=== PATIENT | male | born 1940 | race African-American/Black ===

== ENCOUNTER 2018-09-23 19:45 | Emergency (ER) | payer MEDICARE, OTHER ==
[~2018-09-23] VITALS: Ht 177.8 cm; Wt 106.6 kg
[2018-09-23 22:00] LABS: Albumin 3.3 g/dL (3.4-5.0); Anion Gap 10 (5-15); Blood Urea Nitrogen 50 mg/dL (7-18); Calcium 9.2 mg/dL (8.5-10.1); Carbon Dioxide 20 mmol/L (21-32); Chloride 108 mmol/L (98-107); Glucose 115 mg/dL (74-106); Magnesium 2.1 mg/dL (1.6-2.6); Potassium 4.4 mmol/L (3.5-5.1); Sodium 138 mmol/L (136-145)
[2018-09-23 22:02] LABS: Alanine Aminotransferase 14 U/L (16-61); Aspartate Aminotransferase 7 U/L (15-37); BUN/Creatinine Ratio 13.2; GFR African American 20 mL/min; GFR Non-African American 17 mL/min
[2018-09-23 22:06] LABS: Alkaline Phosphatase 83 U/L (45-117); Bilirubin, Total 0.5 mg/dL (0.2-1.0); Total Protein 7.3 g/dL (6.4-8.2)
[2018-09-23 22:09] LABS: Basophils # (auto) 0 uL; Basophils % (auto) 0.7 % (0.0-2.0); Eosinophils # (auto) 0.2 uL; Eosinophils % (auto) 3.2 % (0.0-7.0); Hematocrit 37.9 % (41.0-53.0); Hemoglobin 12.3 g/dL (13.5-17.5); Lymphocytes # (auto) 1.2 uL; Lymphocytes % (auto) 23.6 % (10.0-50.0); Mean Corpuscular Hemoglobin 27.7 pg (28.0-32.0); Mean Corpuscular Hgb Conc. 32.5 g/dL (32.0-36.0); Mean Corpuscular Volume 85.2 fL (80.0-100.0); Monocytes # (auto) 0.4 uL; Monocytes % (auto) 8.7 % (0.0-12.0); Neutrophils # (auto) 3.2 uL; Neutrophils % (auto) 63.8 % (37.0-80.0); Platelet Count (auto) 183 10^3/uL (140-450); Red Blood Cells 4.45 10^6/uL (4.5-5.90); Red Cell Distribution Width 14.8 % (11.8-14.3); White Blood Cell 4.9 10^3/uL (4.4-10.8)
[2018-09-23 22:37] LABS: INR 1.03 (0.9-1.15); Partial Thromboplastin Time 29.4 sec (23.78-33.04)
[2018-09-24 02:16] VITALS: BP 128/75
== END 2018-09-24 02:57 | disposition home or self-care (01) ==
LOC: ER 19:45
DX: I95.9 Hypotension, unspecified (principal); E11.22 Type 2 diabetes mellitus with diabetic chronic kidney disease; N18.9 Chronic kidney disease, unspecified; I50.9 Heart failure, unspecified; E78.5 Hyperlipidemia, unspecified
CPT/HCPCS: 36415; 71045; 80053; 83735; 83880; 84484; 85025; 85379; 85610; 85730; 93005; 94761

== ENCOUNTER 2018-10-14 03:51 | Emergency (ER) | payer SELFPAY ==
[~2018-10-14] VITALS: Ht 177.8 cm; Wt 98.0 kg
[2018-10-14] MEDS ORDERED: cloNIDine HCL 0.1 MG TAB ONE (04:21)
[2018-10-14] MEDS ORDERED: cloNIDine HCL 0.1 MG TAB PO ONE (04:30)
[2018-10-14 07:53] LABS: Anion Gap 7 (5-15); Carbon Dioxide 25 mmol/L (21-32); Chloride 113 mmol/L (98-107); Sodium 145 mmol/L (136-145)
[2018-10-14 07:54] LABS: Albumin 3.2 g/dL (3.4-5.0); Blood Urea Nitrogen 43 mg/dL (7-18); Calcium 8.8 mg/dL (8.5-10.1); Glucose 53 mg/dL (74-106); Magnesium 2.5 mg/dL (1.6-2.6)
[2018-10-14 07:56] LABS: Basophils # (auto) 0 uL; Basophils % (auto) 0.8 % (0.0-2.0); Eosinophils # (auto) 0.1 uL; Hematocrit 32.5 % (41.0-53.0); Hemoglobin 10.8 g/dL (13.5-17.5); Lymphocytes # (auto) 1.3 uL; Lymphocytes % (auto) 29.2 % (10.0-50.0); Mean Corpuscular Hemoglobin 28.4 pg (28.0-32.0); Mean Corpuscular Hgb Conc. 33.2 g/dL (32.0-36.0); Mean Corpuscular Volume 85.4 fL (80.0-100.0); Monocytes # (auto) 0.5 uL; Monocytes % (auto) 10.3 % (0.0-12.0); Neutrophils # (auto) 2.5 uL; Neutrophils % (auto) 56.7 % (37.0-80.0); Platelet Count (auto) 171 10^3/uL (140-450); Red Cell Distribution Width 15.5 % (11.8-14.3); White Blood Cell 4.4 10^3/uL (4.4-10.8)
[2018-10-14 08:00] LABS: Alanine Aminotransferase 11 U/L (16-61); Alkaline Phosphatase 76 U/L (45-117); Aspartate Aminotransferase 7 U/L (15-37); Bilirubin, Total 0.4 mg/dL (0.2-1.0); GFR African American 21 mL/min; GFR Non-African American 18 mL/min; Total Protein 6.9 g/dL (6.4-8.2)
[2018-10-14] MEDS ORDERED: FUROSEMIDE 20 MG/2 ML VIAL IV ONE (09:00)
[2018-10-14] MEDS ORDERED: DEXTROSE (50%) 50ML SYRG IV ONE (09:30)
[2018-10-14 12:14] LABS: Urine Bacteria NONE SEEN /hpf (None Seen); Urine Blood Negative /uL (Negative); Urine Specific Gravity 1.009 (1.001-1.035); Urine WBC <1 /hpf (0 - 3)
[2018-10-14 13:15] VITALS: BP 162/99
== END 2018-10-14 12:56 | disposition home or self-care (01) ==
LOC: ER 03:54
DX: I11.0 Hypertensive heart disease with heart failure (principal); I50.9 Heart failure, unspecified; E11.9 Type 2 diabetes mellitus without complications; E78.5 Hyperlipidemia, unspecified
CPT/HCPCS: 36415; 71046; 80053; 81001; 82962; 83735; 83880; 84484; 85025; 93005; 96374; 96375; 99284; J1940; J7042

== ENCOUNTER → 2018-11-17 | Outpatient (CLI) | payer MEDICARE, OTHER ==
[~2018-11-17] MED LIST: APIX2.5T PO; ATOR20TA50 PO; CAR3125T PO; CHOL20007 PO; FURO40TA4 PO; GLIP10TA9 PO; HYDR-4296 PO; ISO60SRT PO; PANT40T PO; POTA1TAB61 PO; TAMS0.4C36 PO
[2018-11-17 10:58] LABS: INR 1.08 (0.9-1.15); Partial Thromboplastin Time 31.5 sec (23.64-32.05)
--- NOTE | 2018-11-17 12:00 | NUR ---
DISCHARGE INSTRUCTIONS. REVIEWED DISCHARGE INSTRUCTIONS FOR BIOPSY AFTERCARE WITH THE PATIENT AND THE PATIENT'S DAUGHTER. ADVISED TO GIVE THESE PRINTED INSTRUCTIONS TO THE PATIENT CARE STAFF AT [facility] WHERE PATIENT CURRENTLY RESIDES.
== END | disposition home or self-care (01) ==
LOC: EDBD 09:57 → US 09:57
PROVIDERS: ATTEND Internal Medicine
DX: E04.1 Nontoxic single thyroid nodule (principal); E11.22 Type 2 diabetes mellitus with diabetic chronic kidney disease; I13.2 Hypertensive heart and chronic kidney disease with heart failure and with stage 5 chronic kidney disease, or end stage renal disease; I50.23 Acute on chronic systolic (congestive) heart failure; N18.6 End stage renal disease; E11.40 Type 2 diabetes mellitus with diabetic neuropathy, unspecified; D64.9 Anemia, unspecified; E78.5 Hyperlipidemia, unspecified; J44.9 Chronic obstructive pulmonary disease, unspecified; I21.A1 Myocardial infarction type 2; I25.10 Atherosclerotic heart disease of native coronary artery without angina pectoris; K21.9 Gastro-esophageal reflux disease without esophagitis; I48.91 Unspecified atrial fibrillation; M81.0 Age-related osteoporosis without current pathological fracture; Z95.1 Presence of aortocoronary bypass graft; Z79.4 Long term (current) use of insulin; Z79.82 Long term (current) use of aspirin; Z79.899 Other long term (current) drug therapy; Z99.2 Dependence on renal dialysis
CPT/HCPCS: 10005; 10022; 36415; 76536; 76942; 85610; 85730; 88173

== ENCOUNTER 2019-02-13 00:37 | Inpatient (IN) | payer MEDICARE, OTHER ==
[~2019-02-13] VITALS: Ht 170.2 cm; Wt 94.0 kg
[2019-02-13 02:46] LABS: Basophils # (auto) 0.1 uL; Basophils % (auto) 1.3 % (0.0-2.0); Eosinophils # (auto) 0.2 uL; Eosinophils % (auto) 3.7 % (0.0-7.0); Hematocrit 38.5 % (41.0-53.0); Hemoglobin 12.7 g/dL (13.5-17.5); Lymphocytes # (auto) 1.5 uL; Lymphocytes % (auto) 27.9 % (10.0-50.0); Mean Corpuscular Hemoglobin 29.6 pg (28.0-32.0); Mean Corpuscular Hgb Conc. 32.9 g/dL (32.0-36.0); Mean Corpuscular Volume 89.7 fL (80.0-100.0); Monocytes # (auto) 0.5 uL; Monocytes % (auto) 8.7 % (0.0-12.0); Neutrophils # (auto) 3.2 uL; Neutrophils % (auto) 58.4 % (37.0-80.0); Nucleated Red Blood Cells % 0.1 %; Platelet Count (auto) 136 10^3/uL (140-450); Red Blood Cells 4.29 10^6/uL (4.5-5.90); Red Cell Distribution Width 16.8 % (11.8-14.3); White Blood Cell 5.4 10^3/uL (4.4-10.8)
[2019-02-13 02:58] LABS: Urine Bacteria FEW /hpf (None Seen); Urine Blood Negative /uL (Negative); Urine Hyaline Cast FEW /lpf (0 - 2); Urine Specific Gravity 1.021 (1.001-1.035); Urine WBC 2 /hpf (0 - 3)
[2019-02-13 03:07] LABS: Albumin 3.4 g/dL (3.4-5.0); BUN/Creatinine Ratio 7.4; Magnesium 2.2 mg/dL (1.6-2.6); Potassium 3.9 mmol/L (3.5-5.1)
[2019-02-13 03:12] LABS: Bilirubin, Total 0.6 mg/dL (0.2-1.0); Total Protein 7.5 g/dL (6.4-8.2)
[2019-02-13] MEDS ORDERED: ACETAMINOPHEN 325 MG TAB PO PRN (06:15)
[2019-02-13] MEDS ORDERED: DOCUSATE SOD 100 MG CAP PO PRN (06:15)
[2019-02-13] MEDS ORDERED: ONDANSETRON HCL 4 MG/2 ML VIAL IV PRN (06:15)
[2019-02-13] MEDS ORDERED: DEXTROSE (50%) 50ML SYRG IV PRN (06:15)
[2019-02-13] MEDS ORDERED: TEMAZEPAM 15 MG CAP PO PRN (06:15)
[2019-02-13] MEDS ORDERED: NITROGLYCERIN 0.4 MG SL TAB SL PRN (06:15)
[2019-02-13] MEDS ORDERED: MORPHINE SULF INJ 2 MG/ML SYRINGE 1ML IV PRN (06:15)
--- NOTE | 2019-02-13 07:50 | NUR ---
Telemetry admit from ER FRANCOIS DEL CASTILLO admitted to Telemetry unit. Patient oriented to SONU WATKINSRN primary RN, unit, room, bed, and unit policies regarding patient care and visiting hours. Patient now on continuous telemetry monitoring, tele box #13 and telemetry reading on arrival to unit is NSR. Patient weighed by bedscale and encouraged to call if they need something with call light within reach. Bed in low/locked position, bed rails up x2. All questions and concerns addressed, patient verbalized understanding. Will continue to monitor Q1h and PRN
[2019-02-13 09:00] VITALS: BP 168/95
[2019-02-13] MEDS: ASPirin 81 mg TAB PO SCH (09:07)
[2019-02-13] MEDS: CARVEDILOL 3.125 MG TAB PO SCH ×2 (09:08→21:19)
[2019-02-13] MEDS: APIXABAN 2.5 MG TAB PO SCH ×2 (09:08→21:20)
[2019-02-13] MEDS: ISOSORBIDE MONONITRATE ER 60 MG TAB PO SCH (09:08)
[2019-02-13] MEDS: ACCU-CHEK COMFORT CURVE STRIP VI SCH ×3 (11:32→23:28)
[2019-02-13] MEDS: InsuLIN REG 1unit/0.01ml Soln (100units/ml) SC SCH ×3 (11:34→23:28)
[2019-02-13 13:00] VITALS: BP 120/74
[2019-02-13] MEDS: hydrALAZINE HCL 25 MG TAB PO SCH ×2 (13:34→21:19)
--- NOTE | 2019-02-13 15:40 | NUR ---
ROUND DR BACA AT BEDSIDE DISCUSSING POC WITH PATIENT. ALL QUESTIONS/CONCERNS ANSWERED. NEW ORDERS RECEIVED/CARRIED OUT. WILL CONTINUE TO MONITOR
--- NOTE | 2019-02-13 15:45 | NUR ---
MELITA POLO PAGE OUT TO DR MCDONALD RE: PATIENT ADMISSION. AWAITING RETURN CALL
[2019-02-13] MEDS ORDERED: cefTRIAXone 1GM/50ML D5W 50 ML IV ONE (16:00)
--- NOTE | 2019-02-13 16:30 | NUR ---
MD CALL DR MCDONALD RETURNED PHONE CALL RE: PATIENT ADMISSION.
[2019-02-13 17:00] VITALS: BP 140/81
[2019-02-13] MEDS: TAMSULOSIN HYDROCHLORIDE 0.4 MG CAP PO SCH (17:53)
[2019-02-13] MEDS: FUROSEMIDE 40 MG/4 ML VIAL IV SCH (17:53)
[2019-02-13] MEDS: ATORVASTATIN 20 MG TAB PO SCH (21:20)
[2019-02-13 21:48] VITALS: BP 129/72
[2019-02-14 05:22] VITALS: BP 139/79
[2019-02-14] MEDS: FUROSEMIDE 40 MG/4 ML VIAL IV SCH ×2 (05:36→17:36)
[2019-02-14 05:37] LABS: Basophils # (auto) 0 uL; Basophils % (auto) 0.8 % (0.0-2.0); Eosinophils # (auto) 0.2 uL; Eosinophils % (auto) 6.5 % (0.0-7.0); Hematocrit 34.1 % (41.0-53.0); Hemoglobin 11.2 g/dL (13.5-17.5); Lymphocytes # (auto) 1.3 uL; Lymphocytes % (auto) 38.4 % (10.0-50.0); Mean Corpuscular Hemoglobin 29.4 pg (28.0-32.0); Mean Corpuscular Hgb Conc. 32.9 g/dL (32.0-36.0); Mean Corpuscular Volume 89.3 fL (80.0-100.0); Monocytes # (auto) 0.4 uL; Monocytes % (auto) 12.6 % (0.0-12.0); Neutrophils # (auto) 1.5 uL; Neutrophils % (auto) 41.7 % (37.0-80.0); Nucleated Red Blood Cells % 0.1 %; Platelet Count (auto) 122 10^3/uL (140-450); Red Blood Cells 3.82 10^6/uL (4.5-5.90); Red Cell Distribution Width 16.3 % (11.8-14.3); White Blood Cell 3.5 10^3/uL (4.4-10.8)
[2019-02-14] MEDS: hydrALAZINE HCL 25 MG TAB PO SCH ×3 (05:37→21:26)
[2019-02-14] MEDS: PANTOPRAZOLE 40 MG TAB PO SCH (05:37)
[2019-02-14] MEDS: InsuLIN REG 1unit/0.01ml Soln (100units/ml) SC SCH ×3 (05:38→17:36)
[2019-02-14] MEDS: ACCU-CHEK COMFORT CURVE STRIP VI SCH ×3 (05:38→17:36)
[2019-02-14 05:57] LABS: Calcium 8.6 mg/dL (8.5-10.1); Potassium 3.9 mmol/L (3.5-5.1)
[2019-02-14 06:01] LABS: BUN/Creatinine Ratio 10.1
--- NOTE | 2019-02-14 07:20 | NUR ---
Opening Shift Note Assumed care of patient, awake, alert and oriented. No S/S of distress/SOB or pain. Bed in low/locked position, bed rails up x2. Instructed on POC and to call for assist PRN with call light within reach. Will continue to monitor for changes Q1hr and PRN.
[2019-02-14] MEDS: ASPirin 81 mg TAB PO SCH (09:19)
[2019-02-14] MEDS: APIXABAN 2.5 MG TAB PO SCH ×2 (09:19→21:28)
[2019-02-14] MEDS: CARVEDILOL 3.125 MG TAB PO SCH ×2 (09:20→21:27)
[2019-02-14] MEDS: ISOSORBIDE MONONITRATE ER 60 MG TAB PO SCH (09:21)
--- NOTE | 2019-02-14 09:27 | NUR ---
UA URINE SAMPLE SENT
[2019-02-14 09:29] VITALS: BP 154/85
--- NOTE | 2019-02-14 13:30 | NUR ---
MD ROUNDS DR BACA AT BEDSIDE DISCUSSING POC WITH PATIENT. ALL QUESTIONS/CONCERNS ANSWERED. NEW ORDERS RECEIVED/CARRIED OUT WILL CONTINUE TO MONITOR
[2019-02-14 14:42] VITALS: BP 161/83
[2019-02-14] MEDS: cefTRIAXone 1GM/50ML D5W 50 ML IV SCH (15:26)
[2019-02-14 17:24] VITALS: BP 157/92
[2019-02-14] MEDS: TAMSULOSIN HYDROCHLORIDE 0.4 MG CAP PO SCH (17:36)
[2019-02-14 21:00] VITALS: BP 125/77
[2019-02-14] MEDS: ATORVASTATIN 20 MG TAB PO SCH (21:28)
[2019-02-15] MEDS: ACCU-CHEK COMFORT CURVE STRIP VI SCH ×5 (00:26→23:52)
[2019-02-15] MEDS: InsuLIN REG 1unit/0.01ml Soln (100units/ml) SC SCH ×5 (00:26→23:53)
[2019-02-15 04:30] VITALS: BP 122/68
[2019-02-15] MEDS: hydrALAZINE HCL 25 MG TAB PO SCH ×3 (06:05→22:58)
[2019-02-15] MEDS: FUROSEMIDE 40 MG/4 ML VIAL IV SCH ×2 (06:05→18:19)
[2019-02-15] MEDS: PANTOPRAZOLE 40 MG TAB PO SCH (06:06)
[2019-02-15 06:19] LABS: Basophils # (auto) 0 uL; Eosinophils # (auto) 0.2 uL; Eosinophils % (auto) 6.1 % (0.0-7.0); Hematocrit 32.4 % (41.0-53.0); Hemoglobin 10.9 g/dL (13.5-17.5); Lymphocytes # (auto) 1.5 uL; Lymphocytes % (auto) 37.2 % (10.0-50.0); Mean Corpuscular Hemoglobin 29.5 pg (28.0-32.0); Mean Corpuscular Hgb Conc. 33.6 g/dL (32.0-36.0); Mean Corpuscular Volume 87.9 fL (80.0-100.0); Monocytes # (auto) 0.4 uL; Neutrophils # (auto) 1.8 uL; Neutrophils % (auto) 44.7 % (37.0-80.0); Platelet Count (auto) 128 10^3/uL (140-450); Red Blood Cells 3.69 10^6/uL (4.5-5.90); Red Cell Distribution Width 16.1 % (11.8-14.3)
[2019-02-15 06:39] LABS: BUN/Creatinine Ratio 11.1; Calcium 8.5 mg/dL (8.5-10.1); Potassium 3.9 mmol/L (3.5-5.1)
--- NOTE | 2019-02-15 08:00 | NUR ---
Opening Shift Note Assumed care of patient, awake, alert and oriented X4. No S/S of distress/SOB or pain. Tele# 13, sinus rhythm @ 69 bpm. IV to right antecubital, 20 gauge, patent and saline locked. Right upper chest wall Zack catheter with dressing clean, dry and intact. Instructed on POC and to call for assist PRN, verbalized understanding. Bed locked, in lowest position, call light within reach, will continue to monitor for changes Q1hr and PRN.
--- NOTE | 2019-02-15 08:45 | NUR ---
CARDIOLOGY Dr Paez at bedside for Cardiology consult, no new orders received at this time. Plan of care discussed with patient, verbalized understanding.
[2019-02-15 09:00] VITALS: BP 164/90
--- NOTE | 2019-02-15 10:18 | NUR ---
ROUNDS Dr Flores at bedside for rounds, new orders received and followed through. Patient updated on plan of care, verbalized understanding.
[2019-02-15] MEDS: APIXABAN 2.5 MG TAB PO SCH ×2 (10:36→21:48)
[2019-02-15] MEDS: ASPirin 81 mg TAB PO SCH (10:37)
[2019-02-15] MEDS: CARVEDILOL 3.125 MG TAB PO SCH ×2 (10:38→21:50)
[2019-02-15] MEDS: ISOSORBIDE MONONITRATE ER 60 MG TAB PO SCH (10:39)
--- NOTE | 2019-02-15 10:57 | NUR ---
HEMODIALYSIS Call placed to [facility], spoke to Mahnaz, fernando patient was seen by Dr Flores yesterday, 02/14/2019, but no hemodialysis orders placed. Per patient, his Dialysis days are , and Thu. Per Mahnaz, she will contact Dr Rosario to get orders. Awaiting return call. Patient updated on plan of care, verbalized understanding. Addendum: 02/15/19 at 1100 by Jolynn Arellano RN ERROR Patient was seen by Dr Rosario yesterday, 02/14/2019, not Sandra.
--- NOTE | 2019-02-15 11:17 | NUR ---
Nutrition assessment Notes please see attached link for complete assessment Est. Needs ABW (80 kg): 2160-2400kcal (27-30 kcal/kgIBW), 96-112 gms pro (1.2-1.4 gms/kgABW r/t HD). Will continue to monitor pertinent labs and reassess nutrient need prn Addendum: 02/15/19 at [address] Amended: Links added.
--- NOTE | 2019-02-15 14:29 | NUR ---
[facility] 2nd call placed requesting Hemodialysis orders, awaiting return call.
--- NOTE | 2019-02-15 14:36 | NUR ---
Return call received from Dr Rosario, notified of reason for call, new orders received and followed through. Patient updated on plan of care, verbalized understanding.
[2019-02-15] MEDS ORDERED: cloNIDine HCL 0.1 MG TAB PO PRN (14:45)
[2019-02-15] MEDS: VALSARTAN 80 MG TAB PO SCH ×2 (15:01→21:49)
[2019-02-15] MEDS: NIFEdipine ER 30 MG TAB PO SCH ×2 (15:02→21:48)
[2019-02-15] MEDS: cefTRIAXone 1GM/50ML D5W 50 ML IV SCH (16:08)
--- NOTE | 2019-02-15 16:13 | NUR ---
assessment re: consult for dc planning Patient is a 78 year old male who is alert and oriented. Prior to admission patient lived home with his Hemal and functioned with assistance. Per patient he has a fww and a cane for home use. Patients PCP is Dr Arnav Browning. Patient has a caregiver Whitney. Patient was released from [facility] to home after 3 months. Patient was feeling ill and came to ER. Patient does not want to return to [facility]. Patient wants to return home with his and caregiver. Patient informed me his will make decisions for him. Patient was on service with [facility]. Patient will need a resumption order on discharge. I informed patient he has a right to speak to a professor of social work regarding all care. I informed patient he has a right to participate in any and all discharge planning. Patient does not have a POA and advanced directive. I have offered patient information on POA and advanced directives. I informed the patient the advantages and benefits of having an Advanced Directive. Patient verbalized understanding and agreed to discharge plan. Addendum: 02/15/19 at 1617 by Sharon HURT Amended: Links added.
--- NOTE | 2019-02-15 16:25 | NUR ---
NEPHROLOGY Dr Rosario at bedside for Nephrology follow up, no new orders at this time. Plan of care discussed with patient, verbalized understanding.
[2019-02-15 16:59] VITALS: BP 129/63
[2019-02-15] MEDS: TAMSULOSIN HYDROCHLORIDE 0.4 MG CAP PO SCH (18:19)
--- NOTE | 2019-02-15 19:25 | NUR ---
Care endorsed to Rusty RN, night nurse
[2019-02-15] MEDS: ATORVASTATIN 20 MG TAB PO SCH (21:48)
[2019-02-15 22:00] VITALS: BP 137/75
[2019-02-16] VITALS (9 sets, daily range): BP systolic 80–138; BP diastolic 50–73
--- NOTE | 2019-02-16 04:41 | NUR ---
notified [facility] hospital[facility] blood pressure is 80/50 hr is 74. Montano provided new order of albumin 250 ml iv 1x dose now. read back and will carry out.
[2019-02-16] MEDS ORDERED: ALBUMIN 5% 250 ML IV ONE (04:45)
[2019-02-16] MEDS: FUROSEMIDE 40 MG/4 ML VIAL IV SCH (06:00)
[2019-02-16] MEDS: hydrALAZINE HCL 25 MG TAB PO SCH (06:00)
[2019-02-16] MEDS: InsuLIN REG 1unit/0.01ml Soln (100units/ml) SC SCH ×3 (06:00→17:35)
[2019-02-16] MEDS: ACCU-CHEK COMFORT CURVE STRIP VI SCH ×3 (06:09→17:34)
[2019-02-16] MEDS: PANTOPRAZOLE 40 MG TAB PO SCH (06:09)
--- NOTE | 2019-02-16 06:12 | NUR ---
bp eval: currently is 100/56. albumin still infusing.
--- NOTE | 2019-02-16 08:00 | NUR ---
Opening Shift Note Assumed care of patient, awake, alert and oriented X4. No S/S of distress/SOB or pain. Tele# 13, sinus rhythm @66 bpm. IV to right hand, 22 gauge, patent and saline locked. Right upper chest wall Zack catheter with dressing clean, dry and intact. Instructed on POC and to call for assist PRN, verbalized understanding. Bed locked, in lowest position, call light within reach, will continue to monitor for changes Q1hr and PRN.
[2019-02-16] MEDS: ISOSORBIDE MONONITRATE ER 60 MG TAB PO SCH (10:00)
[2019-02-16] MEDS: CARVEDILOL 3.125 MG TAB PO SCH ×2 (10:00→21:42)
--- NOTE | 2019-02-16 11:48 | NUR ---
Discharge planning per consult, patient has orders to dc with home health. On encounter with patient he advised that whatever his (Hemal Hester) was okay with. I spoke to the as she was just outside the room (patient was receiving dialysis) and acknowledged myself, inquired about the choice of home health and she was okay with [facility] as that is what was on the consult, however he is medicare and still needed a choice letter. signed choice letter. Referral was faxed to [place], placed a follow up call, spoke with Emani and they will accept patient on discharge and start of care will be within 24-48 hours. Addendum: 02/16/19 at 1158 by HELENA PRUETT SS Amended: Links added. Addendum: 02/16/19 at 1158 by HELENARAVI PRUETT SS Nurse Neil was advised of the dc plan.
[2019-02-16] MEDS: ASPirin 81 mg TAB PO SCH (12:03)
[2019-02-16] MEDS: APIXABAN 2.5 MG TAB PO SCH ×2 (12:03→21:42)
[2019-02-16] MEDS: cefTRIAXone 1GM/50ML D5W 50 ML IV SCH (15:51)
--- NOTE | 2019-02-16 19:21 | NUR ---
Care endorsed to SATISH Duvall, night nurse.
--- NOTE | 2019-02-16 19:31 | NUR ---
OPENING NOTES RECEIVED REPORT FROM DAY SHIFT NURSE, JORDAN. PT IS AWAKE, ALERT AND ORIENTATED X 4 WITH NO S/S OF DISTRESS NOR PAIN. NO S/S OF SOB. PT HAS [place] CATH ON RIGHT UPPER CHEST. BED IS IN LOWEST POSITION AND SIDE RAILS ARE UP X 2. BED BRAKES ARE LOCKED AND CALL LIGHT IS WITH IN REACH. HOB IS 30 DEGREES. WILL CONTINUE TO MONITOR Q 1 HR.
[2019-02-16] MEDS ORDERED: EPOETIN ALFA 10,000 UNIT/1 ML VIAL IV ONE (21:00)
[2019-02-16] MEDS: ATORVASTATIN 20 MG TAB PO SCH (21:42)
[2019-02-16] MEDS: VALSARTAN 80 MG TAB PO SCH (21:42)
[2019-02-16] MEDS: NIFEdipine ER 30 MG TAB PO SCH (21:43)
[2019-02-17] MEDS: ACCU-CHEK COMFORT CURVE STRIP VI SCH ×3 (00:12→12:41)
[2019-02-17 05:00] VITALS: BP 131/69
[2019-02-17] MEDS: PANTOPRAZOLE 40 MG TAB PO SCH (05:32)
[2019-02-17] MEDS: InsuLIN REG 1unit/0.01ml Soln (100units/ml) SC SCH ×3 (05:39→12:41)
--- NOTE | 2019-02-17 07:38 | NUR ---
closing notes endorsed care to day shift nurseElias.
[2019-02-17 09:00] VITALS: BP 136/72
[2019-02-17] MEDS: APIXABAN 2.5 MG TAB PO SCH (10:10)
[2019-02-17] MEDS: ASPirin 81 mg TAB PO SCH (10:10)
[2019-02-17] MEDS: ISOSORBIDE MONONITRATE ER 60 MG TAB PO SCH (10:11)
[2019-02-17] MEDS: CARVEDILOL 3.125 MG TAB PO SCH (10:12)
[2019-02-17 13:00] VITALS: BP 118/73
[2019-02-17 13:48] VITALS: BP 105/67
--- NOTE | 2019-02-17 14:00 | NUR ---
PER MD SALES; DR. MCDONALD WILL CALL IN PRESCRIPTION FOR DIOVAN, PROCARDIA.
--- NOTE | 2019-02-17 16:06 | NUR ---
DISCHARGE INSTRUCTIONS PROVIDED TO PT AND DAUGHTER. BOTH VERBALIZED UNDERSTANDING FOR PRESCRIPTION ORDERS AND FOLLOW UP APPOINTMENT WITH PRIMARY CARE PROVIDER. PER MD SALES ; DR MCDONALD WILL CALL IN FOR PROCARDIA AND HENRYVAN. PT INSTRUCTED ON STOPPING ALL OTHER BP MEDICATIONS ONCE THIS TWO MEDICATIONS ARE RECEIVED. IV CATHETER DC'D CATHETER INTACT, NO PHLEBITIS, TELE BOX REMOVED AND RETURNED TO MONITORING DEPT. PT SAFELY ESCORTED OUT OF UNIT VIA WHEELCHAIR.
== END 2019-02-17 16:10 | disposition home health service (06) | DRG 291 ==
LOC: ER 00:37 → TELE 00:38 → TELE-EAST 07:54
PROVIDERS: ADMIT Nurse Practitioner; ATTEND Internal Medicine
PROC: 5A1D70Z Performance of Urinary Filtration, Intermittent, Less than 6 Hours Per Day (ICD-10-PCS; principal; 2019-02-16)
DX: I13.2 Hypertensive heart and chronic kidney disease with heart failure and with stage 5 chronic kidney disease, or end stage renal disease (principal); N18.6 End stage renal disease; I50.43 Acute on chronic combined systolic (congestive) and diastolic (congestive) heart failure; N39.0 Urinary tract infection, site not specified; I48.92 Unspecified atrial flutter; E11.22 Type 2 diabetes mellitus with diabetic chronic kidney disease; I25.10 Atherosclerotic heart disease of native coronary artery without angina pectoris; I48.91 Unspecified atrial fibrillation; D63.8 Anemia in other chronic diseases classified elsewhere; E11.21 Type 2 diabetes mellitus with diabetic nephropathy; E66.9 Obesity, unspecified; E78.5 Hyperlipidemia, unspecified; J44.9 Chronic obstructive pulmonary disease, unspecified; G47.30 Sleep apnea, unspecified; G47.00 Insomnia, unspecified; K59.00 Constipation, unspecified; I08.0 Rheumatic disorders of both mitral and aortic valves; R54 Age-related physical debility; I27.20 Pulmonary hypertension, unspecified; I25.5 Ischemic cardiomyopathy; I95.9 Hypotension, unspecified; Z99.2 Dependence on renal dialysis; Z95.1 Presence of aortocoronary bypass graft; Z82.49 Family history of ischemic heart disease and other diseases of the circulatory system; Z79.01 Long term (current) use of anticoagulants; Z79.899 Other long term (current) drug therapy; Z68.32 Body mass index [BMI] 32.0-32.9, adult
CPT/HCPCS: 36415; 71045; 76775; 80048; 80053; 81001; 82962; 83036; 83735; 83880; 84443; 84484; 85025; 87086; 90935; 93306; 96365; 96366; 96375; 97116; 97163; 97530; G0378; J0696; J0885; J1815

== ENCOUNTER 2019-02-28 07:31 | Emergency (ER) | payer MEDICARE, OTHER ==
[~2019-02-28] VITALS: Ht 170.2 cm; Wt 90.3 kg
[2019-02-28 08:06] LABS: Basophils # (auto) 0.1 uL; Basophils % (auto) 2.3 % (0.0-2.0); Eosinophils # (auto) 0.2 uL; Eosinophils % (auto) 5.6 % (0.0-7.0); Hematocrit 37.7 % (41.0-53.0); Hemoglobin 12.2 g/dL (13.5-17.5); Lymphocytes # (auto) 1.5 uL; Lymphocytes % (auto) 35.4 % (10.0-50.0); Mean Corpuscular Hemoglobin 28.9 pg (28.0-32.0); Mean Corpuscular Hgb Conc. 32.4 g/dL (32.0-36.0); Mean Corpuscular Volume 89.2 fL (80.0-100.0); Monocytes # (auto) 0.4 uL; Monocytes % (auto) 10.8 % (0.0-12.0); Neutrophils # (auto) 1.9 uL; Neutrophils % (auto) 45.9 % (37.0-80.0); Platelet Count (auto) 149 10^3/uL (140-450); Red Blood Cells 4.23 10^6/uL (4.5-5.90); Red Cell Distribution Width 16.7 % (11.8-14.3); White Blood Cell 4.1 10^3/uL (4.4-10.8)
[2019-02-28 08:20] LABS: Albumin 3.4 g/dL (3.4-5.0); BUN/Creatinine Ratio 7.8; Calcium 9.2 mg/dL (8.5-10.1); Potassium 4.8 mmol/L (3.5-5.1)
[2019-02-28 08:23] LABS: Bilirubin, Total 0.4 mg/dL (0.2-1.0); Total Protein 7.2 g/dL (6.4-8.2)
[2019-02-28] MEDS ORDERED: cloNIDine HCL 0.1 MG TAB PO ONE (09:00)
[2019-02-28 11:54] VITALS: BP 118/76
== END 2019-02-28 12:16 | disposition home or self-care (01) ==
LOC: ER 07:31
DX: E11.22 Type 2 diabetes mellitus with diabetic chronic kidney disease (principal); I13.2 Hypertensive heart and chronic kidney disease with heart failure and with stage 5 chronic kidney disease, or end stage renal disease; I50.9 Heart failure, unspecified; N18.6 End stage renal disease; F41.9 Anxiety disorder, unspecified; J44.9 Chronic obstructive pulmonary disease, unspecified; E78.5 Hyperlipidemia, unspecified; Z99.2 Dependence on renal dialysis; Z79.4 Long term (current) use of insulin; Z95.1 Presence of aortocoronary bypass graft; Z79.899 Other long term (current) drug therapy
CPT/HCPCS: 36415; 80053; 82962; 85025; 93005

== ENCOUNTER 2019-03-05 19:52 | Emergency (ER) | payer MEDICARE, OTHER ==
[~2019-03-05] VITALS: Ht 170.2 cm; Wt 90.3 kg
[2019-03-06] MEDS ORDERED: ALBUTEROL SULF 2.5 MG/0.5ML(0.5%) NEB SOLN NEB ONE (01:00)
[2019-03-06] MEDS ORDERED: IPRATROPIUM BROM 0.5 MG/2.5ML INH SOL NEB ONE (01:00)
[2019-03-06 03:30] VITALS: BP 141/75
== END 2019-03-06 04:08 | disposition home or self-care (01) ==
LOC: ER 19:55
DX: R06.00 Dyspnea, unspecified (principal); I13.10 Hypertensive heart and chronic kidney disease without heart failure, with stage 1 through stage 4 chronic kidney disease, or unspecified chronic kidney disease; E11.22 Type 2 diabetes mellitus with diabetic chronic kidney disease; N18.9 Chronic kidney disease, unspecified; E78.5 Hyperlipidemia, unspecified; Z95.1 Presence of aortocoronary bypass graft
CPT/HCPCS: 36600; 82805; 82962; 93005; 94640; 99284; J7611; J7644